=== PATIENT | male | born 1985 | race Caucasian/White ===

== ENCOUNTER → 2018-06-09 | Day surgery (SDC) | payer BC ==
[~2018-06-09] MED LIST: DICYCLOMINE HCL10 MG PO; FENTANYL CITRATE/PF 100MCG/2 ML INJ ONE; GLUCAGON FOR INJ 1 MG VIAL ONE; HYOSCYAMINE SULFATE 0.5 MG/ML INJ ONE; MIDAZOLAM HCL 5 MG/ML VIAL ONE; PROPOFOL IV EMULSION 10 MG/ML 20 ML VIAL ONE; PROPOFOL IV EMULSION 10 MG/ML 50 ML VIAL ONE; TYLENOL WITH C1 EACH PO
--- OUTSIDE RECORDS SUMMARY | 2018-06-09 11:22 | XMS REPORT ---
Author Author [facility], [place] Address Unknown Phone Unavailable Care Team Providers Care Rn Procedures Name Role Phone Unavailable Unavailable Problems This patient has no known problems. Allergies, Adverse Reactions, Alerts This patient has no known allergies or adverse reactions. Medications This patient has no known medications.
[2018-06-09 16:30] VITALS: BP 107/69
[2018-06-09 17:05] LABS: WBC,FECAL (FECAL LACTOFERRIN) POSITIVE (NEGATIVE)
--- NOTE | 2018-06-10 01:46 | Operative Report ---
DATE OF PROCEDURE: 06/09/2018 SURGEON: Mick Mcdonald MD PROCEDURE: Esophagogastroduodenoscopy with biopsies and colonoscopy with polypectomy and biopsies. INDICATIONS FOR EGD: Dyspepsia. INDICATIONS FOR COLONOSCOPY: Diarrhea, lower abdominal pain. MEDICATION: The patient was done under MAC, please see anesthesiologist note. PROCEDURE IN DETAIL: With the patient in left lateral decubitus position, flexible fiberoptic Olympus gastroscope was introduced into the esophagus under direct visualization without any difficulty. A single erosion was noted in the distal esophagus. Minute tongues of velvety red mucosa were noted to extend proximally from the GE junction. Biopsies were obtained to rule out Graham's. The scope was then advanced with ease into the stomach. Mucosa overlying the antrum and the body revealed some patchy erythema and low-grade to mild edema. Biopsies were obtained and sent to stain for H pylori. The pylorus was of normal contour and shape, was intubated with ease and the scope was advanced all the way to the 2nd portion of the duodenum. Biopsies were obtained from the proximal 2nd portion and the duodenal bulb to rule out sprue. The scope was then withdrawn back into the stomach and retroflexed. Mucosa overlying the fundus and cardia appeared to be within normal limits. The scope was then straightened out, it was subsequently withdrawn. The patient tolerated procedure well. IMPRESSION: 1. Distal esophagitis. 2. Rule out Graham esophagus. 3. Gastritis, biopsied, biopsies sent to stain for H pylori. 4. Rule out sprue. PLAN: Follow up pathology. Initiate Protonix 40 mg one p.o. q.a.m. a.c. The patient was then turned around after adequate lubrication of the anal canal. The flexible fiberoptic Olympus colonoscope was inserted into the rectum with ease and advanced all the way to the cecum. Mucosa overlying the cecum appeared to be within normal limits. The ileocecal valve was intubated and the scope was advanced into the terminal ileum. Mucosa overlying the terminal ileum revealed some diffuse erythema and moderate edema, and biopsies were obtained. The scope was then withdrawn back into the colon. The mucosa overlying the ascending and transverse appeared to be within normal limits. There were some mild patchy inflammatory changes noted in the left colon and random biopsies were obtained. Three polyps were snared from the sigmoid colon. Three polyps were hot biopsied from the rectum. The scope was then retroflexed into the distal rectum and small internal hemorrhoids were noted, none of which was actively bleeding. The scope was then straightened out, it was subsequently withdrawn. The patient tolerated procedure well. IMPRESSION: 1. Ileitis, biopsies obtained. 2. Mild patchy left-sided colitis. Random biopsies obtained. 3. Sigmoid colon polyps x3, snared. 4. Rectal polyps x3, hot biopsied. 5. Internal hemorrhoids, none actively bleeding. PLAN: 1. Followup histology. 2. Followup stool studies. 3. Initiate VSL#3 one p.o. daily and Bentyl 10 mg one p.o. t.i.d. 4. Timing of followup colonoscopy pending pathology report. Mick Mcdonald MD [facility] [place] [place] /[id number] cc: Jessica Uribe MD
[2018-06-10 13:42] LABS: C DIFFICILE TOXIN A&B AMP PROB NEGATIVE (NEGATIVE)
== END | disposition home or self-care (01) ==
LOC: OR 11:20
PROVIDERS: ATTEND Internal Medicine Gastroenterology
DX: K29.50 Unspecified chronic gastritis without bleeding (principal); K63.5 Polyp of colon; K62.1 Rectal polyp; K51.50 Left sided colitis without complications; K22.70 Barrett's esophagus without dysplasia; K21.0 Gastro-esophageal reflux disease with esophagitis; K64.8 Other hemorrhoids; D64.89 Other specified anemias; F17.290 Nicotine dependence, other tobacco product, uncomplicated; Z68.38 Body mass index [BMI] 38.0-38.9, adult; Z92.3 Personal history of irradiation; Z85.71 Personal history of Hodgkin lymphoma; Z80.0 Family history of malignant neoplasm of digestive organs
CPT/HCPCS: 43239; 45380; 45384; 45385; 83630; 83993; 87045; 87177; 87328; 87493; J1610; J1980; J2250; J2704 ×2; 45378

== ENCOUNTER → 2018-07-10 | Day surgery (SDC) | payer BC ==
[~2018-07-10] MED LIST changes: +ADVIL COLD & S1 EACH PO; -GLUCAGON FOR INJ 1 MG VIAL ONE; -HYOSCYAMINE SULFATE 0.5 MG/ML INJ ONE; +LIDOCAINE HCL 2% LOCAL INJ 5 ML SDV VIAL INJ ONE; +MIDAZOLAM HCL 2 MG/2 ML VIAL ONE; -MIDAZOLAM HCL 5 MG/ML VIAL ONE; -PROPOFOL IV EMULSION 10 MG/ML 50 ML VIAL ONE; +PROTONIX PO
[2018-07-10 13:55] VITALS: BP 114/83
--- NOTE | 2018-07-10 15:03 | Operative Report ---
DATE OF PROCEDURE: 07/10/2018 SURGEON: Mick Mcdonald MD PROCEDURE: Esophagogastroduodenoscopy with biopsies. INDICATION FOR PROCEDURE: History of Graham esophagus. The patient is in for repeat EGD to obtain biopsies of Graham per protocol. MEDICATION: The patient was done under MAC, please see anesthesiologist's note. PROCEDURE IN DETAIL: With the patient in left lateral decubitus position, a flexible fiberoptic Olympus gastroscope was introduced into the esophagus under direct visualization without any difficulty. Tongues of Graham esophagus were noted to extend from the GE junction to a maximal extent of 38 cm from the incisors. Four quadrant biopsies were obtained at 40 cm and biopsies were also obtained of the maximal extent of the aforementioned tongues of Graham's epithelium. The scope was then advanced with ease into the stomach. Mucosa overlying the antrum and the body revealed some patchy areas of erythema and biopsies were obtained from the antrum to check for H pylori as previously obtained biopsies on the 1st EGD apparently were reportedly lost. The pylorus was of normal contour and shape, it was intubated with ease and the scope was advanced all the way to the second portion of the duodenum. The scope was then withdrawn slowly. Mucosa overlying the proximal second portion and duodenal bulb appeared to be within normal limits. The scope was then withdrawn back into the stomach and retroflexed. Mucosa overlying the fundus and cardia appeared to be within normal limits. The scope was then straightened out, it was subsequently withdrawn. The patient tolerated the procedure well. IMPRESSION: 1. Tongues of Graham's epithelium. Four quadrant biopsies obtained at 40 cm and also at the maximal extent of 38 cm from the incisors. 2. Gastritis. PLAN: Follow up histology. Continue Protonix 40 mg one p.o. q.a.m. a.c. If biopsies of the Graham's epithelium does not reveal any dysplasia, then a followup EGD is in order in 3 years. Mick Mcdonald MD [facility] [place] /[id number] cc: Jessica Uribe MD
== END | disposition home or self-care (01) ==
LOC: OR 11:46
PROVIDERS: ATTEND Internal Medicine Gastroenterology
DX: K22.70 Barrett's esophagus without dysplasia (principal); K29.70 Gastritis, unspecified, without bleeding; K52.89 Other specified noninfective gastroenteritis and colitis; R05 Cough; C81.90 Hodgkin lymphoma, unspecified, unspecified site; R06.83 Snoring; T78.40XA Allergy, unspecified, initial encounter; F41.9 Anxiety disorder, unspecified; X58.XXXA Exposure to other specified factors, initial encounter; Z68.38 Body mass index [BMI] 38.0-38.9, adult; Z92.21 Personal history of antineoplastic chemotherapy; Z92.3 Personal history of irradiation; Z87.891 Personal history of nicotine dependence; Z80.0 Family history of malignant neoplasm of digestive organs
CPT/HCPCS: 43239; J2001; J2250; J2704